=== PATIENT | male | born 1975 | race Caucasian/White ===

== ENCOUNTER 2021-05-19 21:06 | Emergency (ER) | payer OTHER ==
[2021-05-19 22:39] LABS: SARS-COV-2 RT PCR NEGATIVE (NEGATIVE)
--- NOTE | 2021-05-19 23:23 | EDPHYS ---
Physician Documentation [facility] Name: Liam Mendoza Age: 45 yrs Sex: Male : 1975 Arrival Date: 05/19/2021 Time: 21:09 Bed 14 Private MD: ED Physician Karan Grimm HPI: 05/19 21:59 This 45 yrs old Male presents to ER via Ambulatory with complaints of Swollen Glands, kb Headache, Sore Throat. 21:59 The patient presents with sore throat. The patient describes throat pain as constant. kb Onset: The symptoms/episode began/occurred 1 week(s) ago. Severity of symptoms: At their worst the symptoms were moderate, in the emergency department the symptoms are unchanged. Modifying factors: The symptoms are alleviated by nothing, the symptoms are aggravated by swallowing. Associated signs and symptoms: Pertinent positives: earache, headache, Sore throat. The patient has not experienced similar symptoms in the past. The patient has not recently seen a physician. Pt reports sore throat for a week that has pain radiating to left ear. Reports pain to left side of neck anteriorly. Reports headache started today. Historical: - Allergies: 21:35 No Known Allergies; kd3 - Home Meds: 21:35 None [Active]; kd3 - PMHx: 21:35 None; kd3 - PSHx: 21:35 HERNIA REPAIR; kd3 - Immunization history:: Adult Immunizations not up to date, Adult Immunizations not up to date. - Social history:: Smoking status: Patient reports the use of cigarette tobacco products, smokes one-half pack cigarettes per day. ROS: 21:59 Constitutional: Negative for fever, chills, and weight loss. kb 21:59 ENT: Positive for ear pain, sore throat. 21:59 Neck: Positive for tenderness. 21:59 Neuro: Positive for headache. 21:59 All other systems are negative. Exam: 21:58 Constitutional: This is a well developed, well nourished patient who is awake, alert, kb and in no acute distress. Head/Face: Normocephalic, atraumatic. ENT: Moist Mucous membranes Cardiovascular: Regular rate and rhythm with a normal S1 and S2. No gallops, murmurs, or rubs. No pulse deficits. Respiratory: Respirations even and unlabored. No increased work of breathing. Talking in full sentences Abdomen/GI: Soft, non-tender. No distention Skin: Warm, dry with normal turgor. Normal color. MS/ Extremity: Pulses equal, no cyanosis. Neurovascular intact. Full, normal range of motion. Neuro: Awake and alert, GCS 15, oriented to person, place, time, and situation. Moves all extremities. Normal gait. Psych: Awake, alert, with orientation to person, place and time. Behavior, mood, and affect are within normal limits. 21:58 Neck: External neck: tenderness, that is moderate, of the left anterior aspect of neck. Vital Signs: 21:33 BP 153 / 99; Pulse 65; Resp 16; Temp 97.6; Pulse Ox 100% ; Weight 97.52 kg; Height 6 kd3 ft. 2 in. (187.96 cm); Pain 01/11; 05/20 00:19 BP 132 / 69 LA Supine (auto/reg); Pulse 75 MON; Resp 20; Temp 97.8(O); Pulse Ox 100% on tk1 R/A; Pain /; 05/19 21:33 Body Mass Index 27.60 (97.52 kg, 187.96 cm) kd3 Katie Coma Score: 00:19 Eye Response: spontaneous(4). Verbal Response: oriented(5). Motor Response: obeys tk1 commands(6). Total: 15. MDM: 05/19 21:33 Patient medically screened. kb 21:58 Data reviewed: vital signs, nurses notes. Data interpreted: Pulse oximetry: on room air kb is 100 %. Interpretation: normal. 23:22 Counseling: I had a detailed discussion with the patient and/or guardian regarding: the kb historical points, exam findings, and any diagnostic results supporting the discharge/admit diagnosis, lab results, radiology results, the need for outpatient follow up, a family practitioner, to return to the emergency department if symptoms worsen or persist or if there are any questions or concerns that arise at home. 05/19 21:34 Order name: COVID-19/FLU A+B (Document "Date of Onset" if Symptomatic); Complete Time: kb 22:40 05/19 21:34 Order name: Strep kb 05/19 21:34 Order name: CT Soft Tissue Neck W/contr kb 05/19 21:34 Order name: IV Start; Complete Time: 21:59 kb Administered Medications: 05/20 00:10 Drug: Ketorolac 15 mg Route: IVP; Site: right antecubital; tk1 Disposition: :59 Co-signature as Attending Physician, Karan Grimm MD. [email or web address] Disposition Summary: 05/19/21 23:22 Discharge Ordered Location: Home kb Condition: Stable kb Diagnosis - Pain in throat kb Followup: kb - With: Emergency Department - When: As needed - Reason: Worsening of condition Followup: kb - With: Private Physician - When: 2 - 3 days - Reason: Recheck today's complaints, Continuance of care, Re-evaluation by your physician Discharge Instructions: - Discharge Summary Sheet kb - Sore Throat, [id number] kb Forms: - Medication Reconciliation Form kb - Thank You Letter kb - Antibiotic Education kb - Prescription Opioid Use kb Signatures: Dispatcher [employer] EDMS Adela Julien, CONCRETE POINTER-C CONCRETE POINTER-Karan López MD MD 7 Guerita Younger RN RN kd3 Mariam Uriostegui tk1
--- NOTE | 2021-05-19 23:23 | ER ---
Nurse's Notes [facility] Name: Liam Mendoza Age: 45 yrs Sex: Male : 1975 Arrival Date: 05/19/2021 Time: 21:09 Bed 14 Private MD: Diagnosis: Pain in throat Presentation: 05/19 21:33 Chief complaint: Patient states: SORE THROAT FOR A WEEK. HEAD ACH TODAY. Coronavirus kd3 screen: Vaccine status: Patient reports being unvaccinated. Ebola Screen: No symptoms or risks identified at this time. Initial Sepsis Screen: Does the patient meet any 2 criteria? No. Patient's initial sepsis screen is negative. Does the patient have a suspected source of infection? No. Patient's initial sepsis screen is negative. Risk Assessment: Do you want to hurt yourself or someone else? Patient reports no desire to harm self or others. Onset of symptoms was May 13, 2021. 21:33 Method Of Arrival: Ambulatory kd3 21:33 Acuity: YESSICA 4 kd3 Triage Assessment: 21:35 Headache History: Denies prior headaches. General: Appears uncomfortable, Behavior is kd3 calm, cooperative, appropriate for age. Pain: Pain currently is 9 out of 10 on a pain scale. Pain began gradually, Also complains of nausea. Neuro: No deficits noted. Level of Consciousness is awake, Oriented to person, place, time, situation, Appropriate for age. Historical: - Allergies: 21:35 No Known Allergies; kd3 - Home Meds: 21:35 None [Active]; kd3 - PMHx: 21:35 None; kd3 - PSHx: 21:35 HERNIA REPAIR; kd3 - Immunization history:: Adult Immunizations not up to date, Adult Immunizations not up to date. - Social history:: Smoking status: Patient reports the use of cigarette tobacco products, smokes one-half pack cigarettes per day. Screenin:12 Abuse screen: Denies threats or abuse. Nutritional screening: No deficits noted. vc1 Tuberculosis screening: No symptoms or risk factors identified. Fall Risk None identified. Assessment: 23:30 General: Appears uncomfortable, well groomed, well developed, well nourished, Behavior tk1 is calm, cooperative, quiet. Pain: Complains of pain in left jaw Pain does not radiate. Pain currently is 6 out of 10 on a pain scale. Quality of pain is described as aching, Pain began gradually, Is continuous, Aggravated by light Noted to be sutton eyes. Vital Signs: 21:33 BP 153 / 99; Pulse 65; Resp 16; Temp 97.6; Pulse Ox 100% ; Weight 97.52 kg; Height 6 kd3 ft. 2 in. (187.96 cm); Pain 01/11; 05/20 00:19 BP 132 / 69 LA Supine (auto/reg); Pulse 75 MON; Resp 20; Temp 97.8(O); Pulse Ox 100% on tk1 R/A; Pain 6/10; 05/19 21:33 Body Mass Index 27.60 (97.52 kg, 187.96 cm) kd3 Katie Coma Score: 00:19 Eye Response: spontaneous(4). Verbal Response: oriented(5). Motor Response: obeys tk1 commands(6). Total: 15. ED Course: 05/19 21:09 Patient arrived in ED. jj6 21:19 Adela Julien F[facility]C [facility] kb 21:19 Karan Grimm MD is Attending Physician. kb 21:32 Guerita Younger RN is Primary Nurse. kd3 21:35 Triage completed. kd3 21:35 Arm band placed on right wrist. kd3 21:55 Inserted saline lock: 20 gauge in right antecubital area, using aseptic technique. lp1 22:12 Patient has correct armband on for positive identification. Bed in low position. Call vc1 light in reach. Side rails up X2. Adult w/ patient. 22:26 CT Soft Tissue Neck W/contr In Process Unspecified. EDMS 05/20 00:19 IV discontinued, intact, bleeding controlled, No redness/swelling at site. Pressure tk1 dressing applied. 00:22 No provider procedures requiring assistance completed. tk1 Administered Medications: 00:10 Drug: Ketorolac 15 mg Route: IVP; Site: right antecubital; tk1 Outcome: 05/19 23:22 Discharge ordered by . madeline 05/20 00:16 Patient left the ED. mw2 00:22 Discharged to home ambulatory. tk1 00:22 Condition: stable 00:22 Discharge instructions given to patient, Instructed on discharge instructions, follow up and referral plans. Demonstrated understanding of instructions, follow-up care. Signatures: Dispatcher [employer] Adela Peguero, CYLINDER MACHINE OPERATOR PULP DRIER-C CYLINDER MACHINE OPERATOR PULP DRIER-Michelle Choi, RN RN lp1 Yang Torres mw2 Ayla Guardado jj6 Guerita Younger RN RN kd3 Mariam Uriostegui tk1 Brittani De La Paz RN RN vc1
[2021-05-20] MEDS ORDERED: KETOROLAC 30 MG/ML INJ ONE (00:07)
[2021-05-20 00:25] VITALS: BP 153/99; TEMP 97.6; O2SAT 100
--- NOTE | 2021-05-20 13:26 | RAD REPORT ---
EXAM DESCRIPTION: CT - Soft Tissue Neck W/Contr - 05/20/2021 6:47 am CLINICAL HISTORY: SORE THROAT. COMPARISON: None. TECHNIQUE: CT of the neck was performed following intravenous administration of iodinated contrast. Axial, coronal, and sagittal reconstructions were created and sent to PACS. This exam was performed according to our departmental dose-optimization program, which includes autom ated exposure control, adjustment of the mA and/or kV according to patient size and/or use of iterati ve reconstruction technique. FINDINGS: No significant tonsillar enlargement. No fluid collections are identified. Thin epiglottis . Unremarkable CT appearance of the orbits and visualized intracranial contents. The visualized paran ryan sinuses and mastoid air cells are clear. Unremarkable appearance of the salivary glands. No prev ertebral edema or fluid collections. No lymphadenopathy identified. No concerning osseous abnormality . The lung apices are clear. Unremarkable appearance of the thyroid gland. IMPRESSION: No acute findings by CT. Electronically signed by: Pamela Spangler MD 05/19/2021 10:37 PM REGISTERED SAFETY ENGINEER Due to temporary technical issues with the PACS/Fluency reporting system, reports are being signed by the in house radiologist without review as a courtesy to ensure prompt reporting. The interpreting r adiologist is fully responsible for the content of the report.
== END 2021-05-20 00:16 | disposition home or self-care (01) ==
LOC: ER 21:06
DX: R07.0 Pain in throat (principal); Z20.822 Contact with and (suspected) exposure to COVID-19; F17.210 Nicotine dependence, cigarettes, uncomplicated
CPT/HCPCS: 87070; 82565; 87081; 0240U; 70491; 96374; 99283; Q9967